=== PATIENT | male | born 1985 | race African-American/Black ===

== ENCOUNTER 2018-05-08 10:14 | Emergency (ER) | payer MEDICAID ==
[~2018-05-08] VITALS: Ht 172.7 cm; Wt 74.0 kg
[2018-05-08] MEDS ORDERED: VISCOUS LIDOCAINE 2% 15 ML UDC MM STA (12:37)
[2018-05-08] MEDS ORDERED: MAGNESIUM/ALUMINUM HYDROXIDE/SIMETHICONE 30ML UDC PO ONE (12:45)
[2018-05-08 13:45] VITALS: BP 113/73
[2018-05-09] MEDS ORDERED: ROCURONIUM BROMIDE 10MG/ML VIAL 5ML IV ONE (08:50)
== END 2018-05-08 14:15 | disposition home or self-care (01) ==
LOC: ER 10:14
DX: R07.9 Chest pain, unspecified (principal)
CPT/HCPCS: 36415; 71045; 84484; 93005; 99284; J3490; Z7610